=== PATIENT | male | born 1985 | race Caucasian/White ===

== ENCOUNTER 2018-07-13 10:58 | Emergency (ER) | payer SELFPAY ==
--- NOTE | 2018-07-13 12:57 | ER ---
Nurse's Notes [facility] Name: Davis Pruett Age: 32 yrs Sex: Male : 1985 Arrival Date: 07/13/2018 Time: 11:04 Bed Waiting Private MD: Diagnosis: ED Course: 07/13 11:04 Patient arrived in ED. as 11:58 Patient's name was called from ER lobby. No response. ph 12:55 Patient's name was called from ER lobby. No response. Unable to locate patient. Will ph disposition as left without being seen by a provider. Administered Medications: No medications were administered Outcome: 12:57 Patient left the ED. ph Signatures: Gaviota Leslie Patricia, RN RN ph
== END 2018-07-13 12:57 | disposition left against medical advice (07) ==
LOC: ER 10:58
DX: Z53.21 Procedure and treatment not carried out due to patient leaving prior to being seen by health care provider (principal)